=== PATIENT | female | born 1960 | race Caucasian/White ===

== ENCOUNTER → 2018-10-13 09:32 | Day surgery (SDC) | payer BC ==
--- NOTE | 2018-10-05 20:49 | HP ---
CC: Dr. Christian Reynoso * ADMISSION HISTORY AND PHYSICAL: DATE OF ADMISSION: 10/13/18 ATTENDING SURGEON: Dr. Odilia Martínez * (SULTANA Choudhary dictating). CHIEF COMPLAINT: Bloody left nipple discharge. HISTORY OF PRESENT ILLNESS: This is a generally healthy 58-year-old female who reports having noticed spontaneous drainage of dark fluid from the left nipple since 2016. This would occur every couple of months and had remained relatively unchanged and without any other concerning symptoms. In February 2018, she noticed that the drainage had become more green or purulent appearing , though without any other associated symptoms of fever, chills, pain, swelling , or redness of the breast. A mammogram was obtained on 03/16/18, which was her first ever mammogram. This was negative for any concerning findings. An ultrasound done on the same date did show bilateral inverted nipples, but no discrete masses. The patient states that she did notice increased inversion of the left nipple over the past year. She did have a repeat ultrasound on , which showed bilateral diffusely dilated ducts. There was no specific mass noted. A repeat mammogram on 08/21/18 also showed no specific changes. She was seen by Dr. Martínez on 08/10/18. An MRI of both breasts was obtained on 08/21/18. This showed multiple foci of mixed type enhancement in both breasts. In addition, there were findings felt to be consistent with hemorrhage of the left central ducts without abnormal enhancement. Her exam with Dr. Martínez on 08/10/18 revealed a somewhat flattened nipple on the left side, but without skin dimpling. No discrete masses in the right and no discrete masses in the left. No nipple discharge from the right nipple, but from the left nipple was noted to be a dark discharge from the central duct that tested positive on Hemoccult. The patient was advised to undergo MRI, which was noted above. She is now scheduled for surgery. She understands the indications, risks, benefits, and alternatives and would like to proceed as scheduled with left breast terminal duct excision. Family history is positive for a paternal aunt with breast cancer after menopause. Other chart notes indicate that there was possibly a family history of ovarian cancer, though I did not clarify that with her. Her only known family history is on her father's side. PAST MEDICAL HISTORY: Generally healthy. She has a long history of a heart murmur (most recent echocardiogram on 04/13/18 showed some mild mitral regurgitation). Holter monitor done back in January 2010 showed some PACs with atrial tachyarrhythmia, but limited to 28-beat run and no other concerning or sustained arrhythmias. PAST SURGICAL HISTORY: She did undergo excision of a right breast lump (benign ) when she was around 20 years of age. She has undergone tubal ligation and repair of a bunion of the left foot including internal fixation. CURRENT MEDICATIONS: 1. Multivitamin daily. 2. Probiotic daily. 3. Apple cider vinegar tablet once daily. DRUG ALLERGIES: PENICILLIN (hives and throat swelling), LATEX (localized itching). FAMILY HISTORY: Negative for anesthesia problems, bleeding or clotting disorders as far as she is aware. SOCIAL HISTORY: The patient is . She works as a surgical dental assistant. She denies use of tobacco, alcohol, or other recreational drugs. REVIEW OF SYSTEMS: General: No recent constitutional symptoms or acute illnesses. Her weight has been stable. HEENT: No problems reported. Cardiovascular: She did undergo workup as noted above back in the late summer, early fall including echocardiogram and Holter monitor. The symptoms of palpitations and/or heart racing have subsided greatly. No history of hypertension. Respiratory: No history of asthma, chronic cough, or shortness of breath. GI: No problems reported. She did undergo colonoscopy approximately 5 years ago, which she states was a normal study with no interval symptoms and recommended followup of 10 years. : No problems reported. 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 She has not had a Pap smear in at least 10 years and was advised strongly to do so. She denies any symptoms of vaginal bleeding. She did undergo a LEEP procedure many years ago with subsequent Pap smears being normal. Endocrine: No diabetes or thyroid dysfunction. PHYSICAL EXAMINATION GENERAL: Well-nourished, well-developed female, in no acute distress. VITAL SIGNS: Height 5 feet 2 inches, weight 170 pounds. Blood pressure 120/82 , pulse 66, respirations 16. HEENT: Pupils are equal, round, and reactive. EOMs intact. No conjunctival pallor. Oropharynx: Teeth in good repair. No intraoral lesions. NECK: No lymphadenopathy, thyromegaly, or masses. LUNGS: Clear to auscultation. No rales or wheezes. HEART: Regular rate and rhythm. Possibly soft systolic murmur heard at the right sternal border, though not totally clear to my exam. BREASTS: I examined her today with the PA student and left breast only where the nipple does appear to be inverting. There is no erythema. There is a small area lateral to the nipple where she had a recent sore that has since almost healed. That skin site is at 3 o'clock position approximately 2 to 3 cm from the nipple. She is somewhat tender to palpation particularly around the 12 o'clock position of the nipple-areolar complex. I was unable to express any drainage today. Right breast was not examined. ABDOMEN: Soft with no tenderness of concern or palpable masses. No organomegaly. GENITALIA: Not done. RECTAL: Not done. BACK: No spinous process or CVA tenderness. EXTREMITIES: No edema. NEUROLOGICAL: Grossly intact. SKIN: Warm and dry. No suspicious rashes or lesions noted. IMPRESSION: Bloody left nipple discharge. PLAN: Left breast terminal duct excision. SULTANA CHOUDHARY [id number]/[facility] #: [id number] MARGARITA
[~2018-10-13 09:32] MED LIST: Buffered Lidocaine 1% SYRIN* 1 ML/SYRINGE INTRADERM ONE; Bupivacaine 0.5%* 50 ML VIAL ONE; Clindamycin 900 MG IVPREMIX(* 900 MG/50 ML SDV IV ONE; Dexamethasone IV* 4 MG/ML 1 ML (4 MG) IV SLOW PU ONE; Dexamethasone IV* 4 MG/ML 1 ML (4 MG) ONE; DiMENhydriNATE IV* 50 MG/ML VIAL IV PUSH PRN; Famotidine IV* 10 MG/ML 2 ML (20 mg) IV ONE; Famotidine IV* 10 MG/ML 2 ML (20 mg) ONE; Lactated Ringers 1000 ML Bag* 1,000 ML IV SCH; Lidocaine 1% INJ* 10 MG/ML 30 ML SDV ONE; Lidocaine 2% PF * 5 ML VIAL ONE; Midazolam* 1 MG/ML 5 ML VIAL (5 MG) ONE; Naloxone* 0.4 MG/ML 1 ML VIAL IV PRN; Ondansetron INJ* 2 MG/ML VIAL IV PRN; Ondansetron INJ* 2 MG/ML VIAL ONE; Propofol* 10 MG/ML 20 ML BTL ONE; fentaNYL* 50 MCG/ML 2 ML VIAL (100 MCG VIAL) ONE; oxyCODONE/Acetamin 5/325 MG* TAB PO PRN
--- NOTE | 2018-10-13 13:43 | BRIEFOPN ---
Brief Operative Note - Surgery Procedures: 10/13/18 Op Note Pre-op dx: left breast bloody nipple discharge Post-op dx: same Procedure: left breast terminal duct excision Surgeon: Mauricio Mathias: Alin Anesth: local-MAC EBL: 10 cc SCDs on during surgery Abx: given pre-op Complications: none Pt. tolerated procedure well and was transferred to in a stable condition. [facility]
[2018-10-13 14:22] VITALS: BP 139/72
--- NOTE | 2018-10-13 21:57 | OP ---
CC: Dr. Christian Reynoso * DATE OF OPERATION: 10/13/18 - SDS DATE OF : 60 SURGEON: Odilia Martínez MD SCREENING SPECIALIST: SULTANA Gomez student. PRE-OP DIAGNOSIS: Left breast bloody nipple discharge. POST-OP DIAGNOSIS: Left breast bloody nipple discharge. OPERATIVE PROCEDURE: Left breast terminal duct excision. INDICATIONS: Ms. Shaw is a 58-year-old woman who has been identified as having some nipple discharge that turned out to be heme-positive, so plans were made for terminal duct excision. DESCRIPTION OF PROCEDURE: She was brought to the operating room, placed on the OR table in a supine position and given IV sedation. The left breast was prepped and draped in the usual sterile fashion. After infiltrating with local anesthetic, a lacrimal probe was placed into the duct that produced the discharge, which was noted to have been a central duct. Discharge was found at the time of surgery. Then, a circumareolar curvilinear incision was made and subcutaneous tissue was divided with electrocautery in a retroareolar manner so as to elevate the areola. Once reaching the ductal tissue, individual ducts were isolated and divided between clamps and ligated until the duct that had the probe in was encountered. This duct was then isolated and divided. The nipple end was ligated and then a cone of breast tissue surrounding this duct was excised using electrocautery. Once the breast tissue was out of the breast , it was marked in the usual fashion including the additional notation that the double stitch bowden the duct. It was handed off as a specimen. Meanwhile, hemostasis was assured with electrocautery. The wound was irrigated. Clips were placed in the cavity to elizabeth its confines and then closure was accomplished after instilling some additional local in the wound. A 3-0 Vicryl was used to close the subcutaneous tissue and the skin was closed with 4-0 Prolene in a subcuticular fashion. Steri-Strips and a dry sterile dressing were applied. All sponge and instrument counts were correct. The patient tolerated the procedure well and was transferred to Recovery in a stable condition. [id number]/[facility] #: [id number] [facility]
== END | disposition home or self-care (01) ==
LOC: OR 09:32
PROVIDERS: ATTEND Surgery
DX: D24.2 Benign neoplasm of left breast (principal); N64.52 Nipple discharge; I34.0 Nonrheumatic mitral (valve) insufficiency; M19.90 Unspecified osteoarthritis, unspecified site
CPT/HCPCS: 88307; J1100; J2250; J2405; J2704; J3010; J3490